=== PATIENT | female | born 1995 | race Caucasian/White ===

== ENCOUNTER 2017-02-05 21:27 | Emergency (ER) | payer SELFPAY ==
[2017-02-05 21:42] VITALS: BP 132/83
[2017-02-05] MEDS ORDERED: Sulfamethox/Trimethoprim DS 800/160* TAB PO ONE (21:47)
[2017-02-05] MEDS ORDERED: Silver Sulfadiazine 1%* 20 GM TOPICAL ONE (21:47)
--- NOTE | 2017-02-05 21:47 | UC ---
HPI BURN - HPI Summary HPI Summary: 21 YEAR OLD MALE PRESENTS WITH COMPLAINS OF MESA ON HIS RIGHT FINGERS 1 WEEK AGO. - History of Current Complaint Chief Complaint: UCBurn Stated Complaint: BURN ON FINGERS Time Seen by Provider: 02/05/17 21:46 Hx Last Menstrual Period: 2013 - Allergy/Home Medications Allergies/Adverse Reactions: Allergies Allergy/AdvReac Type Severity Reaction Status Date / Time Amoxicillin Allergy Unknown Hives Verified 01/29/16 21:16 Azithromycin Allergy Unknown Hives Verified 01/29/16 21:16 Latex Allergy Rash Verified 01/29/16 21:16 PEANUTS Allergy Unknown Hives/Diff. Uncoded 11/17/14 13:03 Breathing/I tching PMH/Surg Hx/FS Hx/Imm Hx Previously Healthy: Yes - Surgical History Surgical History: Yes Surgery Procedure, Year, and Place: ADENOIDS REMOVED. Left hand tendon repair - Family History Known Family History: Positive: Hypertension - Social History Alcohol Use: Weekly Substance Use Type: Marijuana Smoking Status (MU): Never Smoked Tobacco - Immunization History Most Recent Influenza Vaccination: NONE Most Recent Pneumonia Vaccination: NONE Vaccination Up to Date: Yes Review of Systems Constitutional: Negative Skin: Other - 2 DEGREE BURN RIGHT FINGERS. Eyes: Negative ENT: Negative Respiratory: Negative Cardiovascular: Negative Gastrointestinal: Negative Genitourinary: Negative Motor: Negative Neurovascular: Negative Musculoskeletal: Negative Neurological: Negative Psychological: Negative All Other Systems Reviewed And Are Negative: Yes Physical Exam Triage Information Reviewed: Yes Vital Signs: Initial Vital Signs Temp 37.2 C 02/05/17 21:37 Pulse 96 02/05/17 21:37 Resp 20 02/05/17 21:37 BP 132/83 02/05/17 21:37 Pulse Ox 100 02/05/17 21:37 Eye Exam: Normal ENT Exam: Normal Dental Exam: Normal Neck exam: Normal Neck: Positive: 1 Respiratory Exam: Normal Cardiovascular Exam: Normal Abdominal Exam: Normal Musculoskeletal Exam: Normal Neurological Exam: Normal Psychological Exam: Normal Skin: Positive: Other - RIGHT HAND 2 DEGREE MESA Burn Calculation - [place] Formula for Fluid Resuscitation Weight: 68.039 kg 24 -Hour Fluid Replacement: 0.0 Course/Dx Burn - Diagnoses Clinic Provider Diagnoses: SECOND DEGREE BURN RIGHT HAND Discharge - Discharge Plan Condition: Stable Disposition: HOME Prescriptions: Silver Sulfadiazine 1%* [SILVadine 1%*] 1 applic TOPICAL BID #1 jar Sulfamethox/Trimethoprim DS* [Bactrim DS 800/160 TAB*] 1 tab PO BID #20 tab Patient Education Materials: Second Degree Burn (ED) Forms: *Work Release Referrals: Connie Melchor MD [Primary Care Provider] - Carlos Mann MD [Medical Doctor] -
== END 2017-02-05 22:25 | disposition home or self-care (01) ==
LOC: UCEAST 21:27
DX: T23.201A Burn of second degree of right hand, unspecified site, initial encounter (principal); X08.8XXA Exposure to other specified smoke, fire and flames, initial encounter; Y93.9 Activity, unspecified; Y92.9 Unspecified place or not applicable; Z88.1 Allergy status to other antibiotic agents; Z91.040 Latex allergy status; Z91.010 Allergy to peanuts
CPT/HCPCS: 99212; A9270-GY; G0463